=== PATIENT | male | born 1955 | race Caucasian/White ===

== ENCOUNTER 2016-12-17 13:14 | Day surgery (SDC) | payer OTHER ==
[~2016-12-17] VITALS: Ht 193 cm; Wt 74.4 kg
[~2016-12-17 13:14] MED LIST: CYMBALTA30 MG PO; DOLOPHINE HCL5 MG PO; FLEXERIL10 MG PO; PERCOCET 5/31 TABLET PO
== END 2016-12-17 15:15 | disposition home or self-care (01) ==
LOC: PAIN 13:14 → SDC 13:45 → PAIN 15:15
PROC: 01513ZZ Destruction of Cervical Nerve, Percutaneous Approach (ICD-10-PCS; principal; 2016-12-17)
DX: M47.812 Spondylosis without myelopathy or radiculopathy, cervical region (principal); M54.2 Cervicalgia; F41.9 Anxiety disorder, unspecified; M47.816 Spondylosis without myelopathy or radiculopathy, lumbar region; E11.42 Type 2 diabetes mellitus with diabetic polyneuropathy; G62.9 Polyneuropathy, unspecified; G89.29 Other chronic pain; M54.42 Lumbago with sciatica, left side; M51.36 Other intervertebral disc degeneration, lumbar region; F17.200 Nicotine dependence, unspecified, uncomplicated; I10 Essential (primary) hypertension; C95.91 Leukemia, unspecified, in remission; Z88.5 Allergy status to narcotic agent; Z88.8 Allergy status to other drugs, medicaments and biological substances; Z91.09 Other allergy status, other than to drugs and biological substances
CPT/HCPCS: J1030; J2250; J3010; S0020